=== PATIENT | female | born 1990 | race Caucasian/White ===

== ENCOUNTER 2018-08-04 13:22 | Day surgery (SDC) | payer BC ==
[~2018-08-04] VITALS: Ht 167.6 cm; Wt 81.7 kg
[2018-08-04] MEDS ORDERED: ARMOUR THYROID90 MG PO (13:37)
[2018-08-04] MEDS ORDERED: LYRICA75 MG PO (13:37)
[2018-08-04] MEDS ORDERED: VYVANSE70 MG PO (13:38)
[2018-08-04] MEDS ORDERED: RITALIN LA10 MG PO (13:39)
--- NOTE | 2018-08-04 17:43 | NUR ---
08/04/181742 Cathy Ly 5084 PT ARRIVED IN PACU SLEEPY WITH NO C/O'S. ICE TO ABD.
--- NOTE | 2018-08-04 18:20 | NUR ---
PT TRANSFERRED FROM RECOVERY TO ROOM 113 ACCOMPANIED BY . PT IS AWAKE BUT SLEEPY, REPORTS PAIN 5/10 BUT QUICKLY FALLS BACK TO SLEEP. DENIES NAUSEA. SCOPE SITE ARE COVERED WITH GAUZE, CDI WITH ICE TO AREA, GIVEN WRITTEN PERSCRIPTION TO GET FILLED AT PHARMACY BEFORE IT CLOSES. CALL LIGHT IN EASY REACH. IV PATENT WITH TKO RATE.
--- NOTE | 2018-08-04 19:00 | NUR ---
PT RESTING IN BED, RR WNL. PT AWAKENS TO NOISE, THEN FALLS BACK TO SLEEP. DENIES NEEDS. IN ROOM WITH PT. PT UPDATED WITH PLAN OF CARE, QUESTIONS ANSWERED. CALL LIGHT IN REACH.
--- NOTE | 2018-08-04 19:38 | NUR ---
FRESH WATER AND JELLO GIVEN PER PT REQUEST. WILL MONITOR FOR NAUSEA. CALL LIGHT IN REACH. NO FURTHER NEEDS.
--- NOTE | 2018-08-04 19:50 | NUR ---
ASSESSMENT COMPLETE.VSS PT A/OX4, RATES PAIN 6/10, ONE NORCO GIVEN FOR PAIN IN ABDOMEN. LAP SITES TO ABDOMEN CDI, NO SHADOWING OR DRAINAGE NOTED. GAUZE IN PLACE. IV FLUIDS INFUSING PER MD ORDERS, IV SITE WNL. CMS INTACT, PT RECENTLY UP TO VOID X1, YELLOW IN COLOR. JELLO AND WATER ONSUMED BY PATIENT, DENIES NAUSEA. BOWEL TONES ACTIVE. CRACKERS PROVIDED PER PT REQUEST. PT ASKING ABOUT TIME ESTIMATE BEFORE SHE CAN LEAVE. PT STATES, "I KNOW THE PAIN WON'T ALL GO AWAY. I JUST WANT TO GO HOME, I'M READY". THIS RN DISCUSSED PT'S STATUS WITH SERVER MANAGER, AGREED THAT PT IS READY FOR DISCHARGE AND HAS MET ALL DISCHARGE CRITERIA. PREPARING DISCHARGE PAPERWORK.
--- NOTE | 2018-08-04 19:54 | EKG ---
[facility] [address] [place], [place] [address] Signed Normal sinus rhythm Normal ECG No previous ECGs available Confirmed by PAULA GAYTAN MD ([id number]) on 08/04/2018 7:54:34 PM Electronically Signed By: PAULA GAYTAN MD 08/04/181953 PATIENT NAME: GAURANG RIVAS Electrocardiogram DATE OF : 86 PHYSICIAN: PAULA GAYTAN MD REPORT #: [id number] REPORT IS CONFIDENTIAL AND NOT TO BE RELEASED WITHOUT AUTHORIZATION
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
--- NOTE | 2018-08-04 21:20 | NUR ---
THIS RN DISCUSSED AND GAVE VERBAL AND WRITTEN DISCHARGE INSTRUCTIONS TO PT. ALL QUESTIONS ANSWERED AND COMMENTS DISCUSSED. PT AND DENIES QUESTIONS OR NEEDS. ALREADY RECEIVED MD PRESCRIPTION ON DAYSHIFT AND HAS PT'S PAIN MEDICATIONS IN PERSONAL AUTOMOBILE. PT A/OX4, SITES X4 TO ABDOMEN CDI. PT DENIES NAUSEA, TOLERATING ORAL INTAKE. PT TAKEN VIA WHEELCHAIR WITH TO ER MAIN ENTRANCE, PT ASSISTED INTO PERSONAL AUTOMOBILE AND DISCHARGED TO GO HOME. NO DISCHARGE SLIP NOTED ON DISCHARGE PACKET, DRAMA DIRECTOR AWARE AND STATES, "IF YOU DON'T SEE THE SLIP ON THE CLIPBOARD THEN DON'T WORRY ABOUT IT".
--- NOTE | 2018-08-04 23:12 | CONS ---
[facility] [address] [place], [place] [address] Signed DATE OF CONSULTATION: 08/04/2018 CHIEF COMPLAINT: Epigastric abdominal pain. HISTORY OF PRESENT ILLNESS: Don is a 28-year-old female from [place], who [place]. Earlier today, she had significant epigastric and substernal chest pain with nausea. She had a little toast for breakfast and really could not eat much. Later that morning around 11 a.m., she had just a small ice cream cone and said that did not help either. She tried some Tums, some Zofran, some Zantac, and nothing helped. She finally decided to come to the emergency room for evaluation. Here in emergency room, her laboratory work is fine, but the ultrasound showed multiple gallstones and a mildly thickened gallbladder wall and an unremarkable common bile duct. She was given some Dilaudid and that brought her pain down to 3/10. I was asked to see her as a general surgeon on-call here in the emergency room. In the meantime, she has received dose of Zosyn. PAST MEDICAL HISTORY: Hypothyroidism, endometriosis, ADD, and sciatica. PAST SURGICAL HISTORY: Includes an ovarian cystectomy, bilateral tubal ligation, and D and C x1. SOCIAL HISTORY: She does not smoke or drink. She is to her Shawn at [phone]. She has 3 children, all born vaginally. She had one miscarriage and required D and C. 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 Lissa Oconnor is a nurse practitioner at [employer] in [place], [place]. FAMILY HISTORY: Dad was diagnosed with stage IV colon cancer earlier this year at age 56. Mom is healthy. REVIEW OF SYSTEMS: She had 10 systems reviewed. No new issues to add. ALLERGIES: None. MEDICATIONS: [place] Thyroid 90 mg p.o. daily, Lyrica p.r.n., Vyvanse, and Ritalin. Electronically Signed By: PERNELL MCKEON MD 08/04/18 2312 PATIENT NAME: DON RIVAS CONSULTATION DATE OF : [birth year] REPORT #: [id number] PHYSICIAN: PERNELL MCKEON MD PCP: OTHER PCP REPORT IS CONFIDENTIAL AND NOT TO BE RELEASED WITHOUT AUTHORIZATION [facility] [address] [place], [place] [address] Signed PHYSICAL EXAMINATION: VITAL SIGNS: Blood pressure is 132/89, heart rate 74, respiratory rate 18, temperature is 98 degrees. She is 100% on room air. She is 5 feet 6 inches and weighs 81 kg. GENERAL: Don is a 28-year-old young lady, lying supine in her ER bed. Her is in the room. She is clearly in some pain from her stomach, but she is not systemically ill or toxic and she is not jaundiced. LUNGS: Clear to auscultation bilaterally. HEART: Regular rate and rhythm. ABDOMEN: Soft and flat. She is tender in the epigastric and right upper quadrant area. LABORATORY DATA: Her white blood count is 9.1, hemoglobin 14, and neutrophils 62. Her total bilirubin 0.5, AST 13, ALT 15, alkaline phosphatase is 57, albumin is 4.2, and amylase is 79. Beta-hCG negative. Electrolytes are unremarkable. RADIOGRAPHIC STUDIES: The ultrasound shows multiple gallstones and a mildly thickened gallbladder wall. The common bile duct seemed to be unremarkable. ASSESSMENT AND PLAN: Don is a 28-year-old female with acute cholecystitis and cholelithiasis. She has already been given some pain control, IV fluids, and her Zosyn. We are going to make plans to take her directly down to the operating room here shortly for her laparoscopic cholecystectomy. We discussed her findings along with the location and function of the gallbladder. We have discussed laparoscopic versus open cholecystectomy. She understands the expected intraop and postop course. The probably stay tonight in [place], [place] and had home to [place] tomorrow and then she will follow up with her primary care provider in [place]. I am certainly available here in [place]. If she has any concerns or questions, she can call my office. We have also reviewed the risks including, but not limited to bleeding, infection, scarring, change in contour of the skin, damage to bowel, damage to main bile duct, and incisional hernias. She and her have expressed understanding and would like to proceed. Pernell Mckeon MD [facility] /[id number] Electronically Signed By: PERNELL MCKEON MD 08/04/18 2312 PATIENT NAME: DON RIVAS CONSULTATION DATE OF : 86 REPORT #: [id number] PHYSICIAN: PERNELL MCKEON MD PCP: OTHER PCP REPORT IS CONFIDENTIAL AND NOT TO BE RELEASED WITHOUT AUTHORIZATION [facility] [address] [place], [place] [address] Signed cc: MD Lissa Sykes NP Copies: PERNELL MCKEON MD ~ Electronically Signed By: PERNELL MCKEON MD 08/04/18 2312 PATIENT NAME: DON RIVAS CONSULTATION DATE OF : 86 REPORT #: [id number] PHYSICIAN: PERNELL MCKEON MD PCP: OTHER PCP REPORT IS CONFIDENTIAL AND NOT TO BE RELEASED WITHOUT AUTHORIZATION
--- NOTE | 2018-08-05 07:25 | OR ---
[facility] [address] [place], [place] [address] Signed DATE OF OPERATION: 08/04/2018 SURGEON: Pernell Mckeon MD PREOPERATIVE DIAGNOSIS: Acute cholecystitis and cholelithiasis. POSTOPERATIVE DIAGNOSES: 1. Acute cholecystitis and cholelithiasis. 2. Cholesterolosis. PROCEDURE: Laparoscopic cholecystectomy with intraoperative cholangiogram. ESTIMATED BLOOD LOSS: None. FINDINGS: The intraoperative cholangiogram was unremarkable. The gallbladder showed significant cholesterolosis. There were multiple yellow cholesterol stones inside the gallbladder. INDICATIONS: Don is a 28-year-old female who comes to us from [place], [place]. She and her are in town at our local [facility]. She awoke this morning with significant epigastric and substernal chest pain and nausea. She tried to eat some toast and later a little ice cream and nothing worked. She took some Zofran as well as some Pepcid and that did not help. She finally came to the emergency room because of the severity and the continuous nature of the pain. Her vital signs and her laboratory work were unremarkable. However, the ultrasound showed mildly thickened gallbladder wall with multiple stones and an unremarkable common bile duct. Her beta-HCG was negative. I was asked to see her as a general surgeon on-call in the emergency room. I met with Don and her . We reviewed the above findings. We reviewed the location and function of the gallbladder. We reviewed laparoscopic versus open cholecystectomy. They understand the expected intraop and postop course. There is risk to surgery including, but not limited to bleeding, infection, scarring, change in contour of the skin, damage to bowel, damage to main bile duct, and incisional hernias. She and her had expressed understanding and wished to proceed. PROCEDURE NOTE: Don was taken into our operating room and placed in the supine position under general Electronically Signed By: PERNELL MCKEON MD 08/05/18 0725 PATIENT NAME: DON RIVAS OPERATIVE REPORT DATE OF : 86 REPORT #: [id number] PHYSICIAN: PERNELL MCKEON MD PCP: OTHER PCP REPORT IS CONFIDENTIAL AND NOT TO BE RELEASED WITHOUT AUTHORIZATION [facility] [address] [place], [place] [address] Signed endotracheal tube anesthesia. She was given preoperative antibiotics along with subcutaneous heparin. SCDs were utilized. She was then prepped and draped in the usual sterile fashion. All trocars were placed in usual positions under direct visualization of camera without difficulty. The gallbladder was grasped and elevated in the right upper quadrant. We had taken pictures throughout for photodocumentation. We knew immediately she had a tense edematous gallbladder. We dissected out the triangle of [place] and placed a clip across the cystic artery and it was divided. A little bit of the liver parenchyma had opened up next to the falciform ligament and we cauterized that with excellent hemostasis. We then inserted our intraoperative cholangiocatheter into the cystic duct. The intraoperative cholangiogram was unremarkable. The cystic duct stump was secured with PDS Endoloop along with 2 clips to renata its location. After this, the gallbladder was removed from the gallbladder fossa with the help of the cautery and placed into an EndoCatch bag. She had quite a bit of edema between the gallbladder and the gallbladder fossa. The right upper quadrant was irrigated and suctioned out until clear. We used our laparoscopic suturing device to pass 0 Vicryl suture on either side of the fascia of the subxiphoid trocar site. This was tied down to close this fascia primarily. After this, all the gas was allowed to escape and the gallbladder was removed. Our circulating nurse opened the gallbladder on the back table for photodocumentation. Again, it was thickened, significant cholesterolosis and multiple yellow cholesterol stones. We then closed the fascia of the supraumbilical trocar site with interrupted simple and [id number] 0 Vicryl sutures. Local anesthetic was copiously injected into all trocar sites. Each trocar site was irrigated and suctioned out until clear. The skin and dermis of each trocar site were closed with interrupted 3-0 subcuticular Monocryl sutures. Dry gauze and tape were applied to all incisions. Don was awakened from anesthesia, extubated in the OR, and taken to recovery room in stable condition. Pernell Mckeon MD [facility] /[id number] cc: MD Lissa Sykes, GABINO Andersen, ID Electronically Signed By: PERNELL MCKEON MD 08/05/18 0725 PATIENT NAME: DON RIVAS OPERATIVE REPORT DATE OF : 86 REPORT #: [id number] PHYSICIAN: PERNELL MCKEON MD PCP: OTHER PCP REPORT IS CONFIDENTIAL AND NOT TO BE RELEASED WITHOUT AUTHORIZATION [facility] [address] [place], [place] [address] Signed Copies: PERNELL MCKEON MD ~ Electronically Signed By: PERNELL MCKEON MD 08/05/18 0725 PATIENT NAME: DON RIVAS OPERATIVE REPORT DATE OF : 86 REPORT #: [id number] PHYSICIAN: PERNELL MCKEON MD PCP: OTHER PCP REPORT IS CONFIDENTIAL AND NOT TO BE RELEASED WITHOUT AUTHORIZATION
== END 2018-08-04 15:35 | disposition home or self-care (01) ==
LOC: ED 13:22 → DS 15:33 → MS 15:34 → DS 15:35 → MS 21:20
PROVIDERS: Colon & Rectal Surgery
PROC: BF101ZZ Fluoroscopy of Bile Ducts using Low Osmolar Contrast (ICD-10-PCS; 2018-08-04)
PROC: 0FT44ZZ Resection of Gallbladder, Percutaneous Endoscopic Approach (ICD-10-PCS; principal; 2018-08-04 16:26)
DX: K80.12 Calculus of gallbladder with acute and chronic cholecystitis without obstruction (principal); E03.9 Hypothyroidism, unspecified; N80.9 Endometriosis, unspecified; F98.8 Other specified behavioral and emotional disorders with onset usually occurring in childhood and adolescence; M54.30 Sciatica, unspecified side; Z79.899 Other long term (current) drug therapy
CPT/HCPCS: 00790; 74300; 76700; 76705; 80053; 82150; 83690; 84703; 85025; 93005; 93010; 96365; 96375; 99285-25; J0131; J0330; J1100; J1170; J1644; J1885; J2405; J2543; J2704; J3475; J7030; J7060; J7120; Q9967